=== PATIENT | female | born 1995 | race African-American/Black ===

== ENCOUNTER 2024-06-19 21:43 | Emergency (ER) | payer SELFPAY ==
[~2024-06-19] VITALS: Ht 162.6 cm; Wt 135.2 kg
[2024-06-19] MEDS ORDERED: AMOXICILLIN500 MG PO (22:10)
[2024-06-19 22:17] VITALS: PULSE 92; RESP 18; TEMP 98.4; O2SAT 98
[2024-06-19] MEDS ORDERED: DEXAMETHASONE SOD PHOS INJ 4 MG/ML SDV ONE (22:18)
[2024-06-19] MEDS: DEXAMETHASONE SOD PHOS 10 MG/1 ML VIAL IV ONE (22:46)
== END 2024-06-19 22:17 | disposition home or self-care (01) ==
LOC: FSED 21:55
DX: J02.9 Acute pharyngitis, unspecified (principal); I10 Essential (primary) hypertension
CPT/HCPCS: 83518 ×2; 99283; J1100 ×2